=== PATIENT | female | born 1970 | race Caucasian/White ===

== ENCOUNTER 2018-11-08 13:08 | Emergency (ER) | payer MEDICAID ==
[~2018-11-08] VITALS: Ht 165.1 cm; Wt 67.5 kg
[2018-11-08 13:10] VITALS: BP 128/80
--- NOTE | 2018-11-08 13:27 | NUR ---
48 Y/O FEMALE PRESENTS TO ED WITH C/O COUGH AND BODY ACHES FOR 4 DAYS. NO C/O F/C, N/V/D, TRAUMA, SYNCOPE, SOB, CP.
--- NOTE | 2018-11-08 14:37 | NUR ---
Patient/Caregiver given discharge instructions and they have confirmed that they understand the instructions. Patient ambulatory with steady gait. PT LEFT WITH ALL PERSONAL BELONGINGS.
== END 2018-11-08 14:40 | disposition home or self-care (01) ==
LOC: ED 14:33
DX: J06.9 Acute upper respiratory infection, unspecified (principal); J02.8 Acute pharyngitis due to other specified organisms; H92.01 Otalgia, right ear
CPT/HCPCS: 71046; 99283